=== PATIENT | female | born 1990 | race African-American/Black ===

== ENCOUNTER 2016-11-20 11:38 | Emergency (ER) | payer MEDICAID ==
[2016-11-20] MEDS ORDERED: LIDOCAINE 5% (700 MG) TRANSDERMAL ADH..PATCH TP ONE (12:24)
[2016-11-20] MEDS ORDERED: NAPROXEN 250 MG TABLET PO ONE (12:24)
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
--- NOTE | 2016-11-20 13:21 | RADIOLOGY REPORT (SQ) ---
EXAM DESCRIPTION: RIBS LEFT W/PA CHEST COMPLETED DATE/TIME: 11/20/2016 12:47 pm REASON FOR STUDY: left rib pain COMPARISON: 03/20/2016 TECHNIQUE: Frontal view of the chest and additional views of the left ribs acquired. NUMBER OF VIEWS: Three view. LIMITATIONS: None. FINDINGS: FRONTAL CXR: No pneumothorax. No pleural effusion. No atelectasis or infiltrates. RIBS: Old healed fracture involving the left lateral 9th rib. Nondisplaced fractures involving the a nterior left 7th and 8th ribs, age indeterminate. No lytic or blastic bony lesions. OTHER: No other significant finding. IMPRESSION: 1. Nondisplaced fractures involving the anterior lateral left 7th and 8th ribs, age ind eterminate. 2. Old healed fracture involving the posterior lateral left 9th rib. COMMENT: SITE OF TRAUMA/COMPLAINT MARKED/STAMP COMPLETED: YES. TECHNICAL DOCUMENTATION: JOB ID: [id number] [employer]- All Rights Reserved
[2016-11-20 13:29] LABS: APPEARANCE,URINE CLEAR; BILIRUBIN,URINE NEGATIVE (NEGATIVE); GLUCOSE, URINE NEGATIVE (NEGATIVE); KETONES,URINE NEGATIVE (NEGATIVE); LEUKOCYTE ESTERASE,URINE NEGATIVE (NEGATIVE); NITRITE,URINE NEGATIVE (NEGATIVE); PROTEIN,URINE NEGATIVE (NEGATIVE); URINE SPECIFIC GRAVITY 1.014
[2016-11-20] MEDS ORDERED: HYDROCODONE/ACETAMINOPHEN 5-325 MG TABLET PO ONE (13:41)
[2016-11-20 14:19] VITALS: BP 133/80
[2016-11-20 17:41] LABS: CHLAM PCR NOT DETECTED (NOT DETECT)
== END 2016-11-20 14:17 | disposition home or self-care (01) ==
LOC: ER 11:38
DX: S22.42XA Multiple fractures of ribs, left side, initial encounter for closed fracture (principal); W19.XXXA Unspecified fall, initial encounter; R30.0 Dysuria; R10.2 Pelvic and perineal pain
CPT/HCPCS: 99284; 81025; 81001; 87491; 87591; 71101; J3490 ×2

== ENCOUNTER 2017-09-01 03:56 | Emergency (ER) | payer SELFPAY ==
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
[2017-09-01] MEDS ORDERED: ACETAMINOPHEN 325 MG TABLET PO ONE (06:00)
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
[2017-09-01 07:55] VITALS: BP 124/80
--- NOTE | 2017-09-01 09:48 | EKG REPORT ---
SEVERITY:- NORMAL ECG - SINUS RHYTHM : Confirmed by: Carlos Alberto Javed MD 01-Sep-2017 09:47:46
== END 2017-09-01 07:55 | disposition home or self-care (01) ==
LOC: ER 03:56
DX: S00.83XA Contusion of other part of head, initial encounter (principal); S01.511A Laceration without foreign body of lip, initial encounter; S02.40FA Zygomatic fracture, left side, initial encounter for closed fracture; Y04.2XXA Assault by strike against or bumped into by another person, initial encounter; F17.200 Nicotine dependence, unspecified, uncomplicated
CPT/HCPCS: 70450; 70486; 71046; 93005; 93010; 99284

== ENCOUNTER 2017-09-15 02:25 | Emergency (ER) | payer SELFPAY ==
[2017-09-15] MEDS ORDERED: OXYCODONE-ACETAMINOPHEN 5-325 MG TABLET PO ONE (03:04)
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
[2017-09-15] MEDS ORDERED: LORAZEPAM 1 MG TABLET PO ONE (03:36)
[2017-09-15] MEDS ORDERED: LIDOCAINE 1% INJ-PF (10 MG/ML) 30 ML SDV INJ ONE (03:36)
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
[2017-09-15 06:35] VITALS: BP 118/81
== END 2017-09-15 06:35 | disposition home or self-care (01) ==
LOC: ER 02:25
DX: S02.40FA Zygomatic fracture, left side, initial encounter for closed fracture (principal); S01.511A Laceration without foreign body of lip, initial encounter; Y04.2XXA Assault by strike against or bumped into by another person, initial encounter
CPT/HCPCS: 99285; 70486; 40830; J3490

== ENCOUNTER 2017-09-18 11:11 | Emergency (ER) | payer SELFPAY ==
[2017-09-18 11:15] VITALS: BP 124/74
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
== END 2017-09-18 11:47 | disposition home or self-care (01) ==
LOC: ER 11:11
DX: Z48.89 Encounter for other specified surgical aftercare (principal); F17.200 Nicotine dependence, unspecified, uncomplicated
CPT/HCPCS: 99281

== ENCOUNTER 2018-08-12 11:52 | Outpatient (CLI) | payer MEDICAID ==
[2018-08-12 13:28] LABS: APPEARANCE,URINE CLEAR; BILIRUBIN,URINE NEGATIVE (NEGATIVE); COLOR,URINE STRAW; GLUCOSE, URINE NEGATIVE (NEGATIVE); KETONES,URINE TRACE mg/dL (NEGATIVE); LEUKOCYTE ESTERASE,URINE NEGATIVE (NEGATIVE); NITRITE,URINE NEGATIVE (NEGATIVE); PROTEIN,URINE NEGATIVE (NEGATIVE); URINE SPECIFIC GRAVITY 1.004; UROBILINOGEN,URINE NEGATIVE mg/dL (<2.0)
[2018-08-12 13:52] LABS: URINE AMPHETAMINES SCREEN NEGATIVE; URINE BARBITURATES SCREEN NEGATIVE; URINE BENZODIAZEPINES SCREEN NEGATIVE; URINE COCAINE SCREEN NEGATIVE; URINE METHADONE SCREEN NEGATIVE; URINE PHENCYCLIDINE SCREEN NEGATIVE
[2018-08-12 13:56] LABS: URINE MARIJUANA (THC) SCREEN UNCONFIRMED POSITIVE
== END 2018-08-12 14:06 | disposition home or self-care (01) ==
LOC: LC 11:52
PROVIDERS: ATTEND Obstetrics & Gynecology
PROC: 4A1HXCZ Monitoring of Products of Conception, Cardiac Rate, External Approach (ICD-10-PCS; principal; 2018-08-12)
DX: O47.02 False labor before 37 completed weeks of gestation, second trimester (principal); Z3A.21 21 weeks gestation of pregnancy
CPT/HCPCS: 80307; 81001

== ENCOUNTER → 2018-09-04 | Outpatient (CLI) | payer MEDICAID ==
--- NOTE | 2018-09-04 16:29 | RADIOLOGY REPORT (SQ) ---
EXAM DESCRIPTION: U/S OB 14+ TRNABD 1GES W/O DOP COMPLETED DATE/TIME: 09/04/2018 3:15 pm REASON FOR STUDY: ENCOUNTER FOR SUPERVISION OF OTHER NORMAL , SECOND TRIMESTER Z34.82 ENCO UNTER FOR SUPRVSN OF NORMAL , SECOND TRI 24 weeks 0 days by dates COMPARISON: None. TECHNIQUE: Static and Dynamic grayscale imaging performed of gravid uterus using transabdominal appr oach. Additional selected color Doppler and spectral images recorded. All stored on PACS. LIMITATIONS: None. FINDINGS: FETUSES SEEN:1 EGA: 23 weeks 2 days Calculated using BPD,FL,HC,AC documented on images. No discrepancy with clinica l dates. JR: 12/30/2018 EFW: 597 grams PERCENTILE: Not calculated ARCHIE: 15.8 cm PLACENTA: Fundal grade 1 PRESENTATION: Breech ANATOMY: HEART RATE: 144 beats per minute. FOUR CHAMBER HEART: Visualized. THREE VESSEL CORD: Yes. CORD INSERTION: Visualized. KIDNEYS AND BLADDER: Visualized. Appear normal. STOMACH: Visualized. Appears normal. SPINE: Normal as visualized. BRAIN AND LATERAL VENTRICLES: Visualized. Appear normal. OTHER: No other significant finding. MATERNAL ADNEXA: Not seen. CERVICAL LENGTH: Not measured. OTHER: No other significant finding. IMPRESSION: LIVING INTRAUTERINE . ESTIMATED GESTATIONAL AGE 23 weeks 2 days NO VISUALIZED ANOMALIES. Trimester of : Second trimester - 13 weeks 1 day to 27 weeks 6 days. TECHNICAL DOCUMENTATION: JOB ID: [id number] [employer]- All Rights Reserved Reading location - IP/workstation name: [email or web address]
== END ==
LOC: RAD 14:02
PROVIDERS: ATTEND Midwife
DX: Z34.82 Encounter for supervision of other normal pregnancy, second trimester (principal)
CPT/HCPCS: 76805

== ENCOUNTER 2018-12-22 19:16 | Inpatient (IN) | payer MEDICAID ==
[2018-12-22 20:00] LABS: APPEARANCE,URINE CLEAR; BILIRUBIN,URINE NEGATIVE (NEGATIVE); COLOR,URINE STRAW; GLUCOSE, URINE NEGATIVE (NEGATIVE); KETONES,URINE NEGATIVE (NEGATIVE); LEUKOCYTE ESTERASE,URINE SMALL (NEGATIVE); NITRITE,URINE NEGATIVE (NEGATIVE); PROTEIN,URINE NEGATIVE (NEGATIVE); URINE SPECIFIC GRAVITY 1.002; UROBILINOGEN,URINE NEGATIVE mg/dL (<2.0)
[2018-12-22 20:28] LABS: URINE AMPHETAMINES SCREEN NEGATIVE; URINE BARBITURATES SCREEN NEGATIVE; URINE BENZODIAZEPINES SCREEN NEGATIVE; URINE COCAINE SCREEN NEGATIVE; URINE METHADONE SCREEN NEGATIVE; URINE PHENCYCLIDINE SCREEN NEGATIVE
[2018-12-22 20:34] LABS: URINE MARIJUANA (THC) SCREEN UNCONFIRMED POSITIVE
[2018-12-22] MEDS ORDERED: OXYTOCIN/NORMAL SALINE 0 UNIT/0 ML RTUINJ ONE (20:39)
[2018-12-22] MEDS ORDERED: LIDOCAINE 1% INJ-PF (10 MG/ML) 30 ML SDV ONE ×2 (20:39→20:42)
[2018-12-22] MEDS ORDERED: MISOPROSTOL 0.2 MG TABLET ONE ×2 (20:39→20:42)
[2018-12-22] MEDS ORDERED: OXYTOCIN 10 UNIT/ML VIAL ONE (20:41)
[2018-12-22] MEDS ORDERED: OXYTOCIN/NORMAL SALINE 20 UNIT/1,000 ML RTUINJ ONE (20:42)
[2018-12-22] MEDS ORDERED: RINGERS SOLUTION,LACTATED 1,000 ML IV PRN (20:59)
[2018-12-22] MEDS ORDERED: PENICILLIN G-K 5 MILLION UNIT VIAL ONE (20:59)
[2018-12-22] MEDS ORDERED: PENICILLIN G POTASSIUM 5,000,000 UNIT in DEXTROSE 5%-WATER 100 ML IV ONE (20:59)
[2018-12-22 21:36] LABS: ABSOLUTE EOSINOPHILS # (AUTO) 0.1 10^3/uL (0.0-0.6); ABSOLUTE LYMPHOCYTES (AUTO) 2.2 10^3/uL (0.5-4.7); ABSOLUTE MONOCYTES (AUTO) 0.7 10^3/uL (0.1-1.4); BASOPHILS % (AUTO) 0.2 % (0-2); EOSINOPHILS % (AUTO) 1.2 % (0-6); HEMATOCRIT 30.5 % (36.0-47.0); HEMOGLOBIN 9.9 g/dL (12.0-15.5); LYMPHOCYTES % (AUTO) 24.5 % (13-45); MEAN CORPUSCULAR HEMOGLOBIN 23.3 pg (27.0-33.4); MEAN CORPUSCULAR HGB CONC 32.5 g/dL (32.0-36.0); MEAN CORPUSCULAR VOLUME 72 fl (80-97); MONOCYTES % (AUTO) 7.4 % (3-13); PLATELET COUNT 260 10^3/uL (150-450); RED BLOOD COUNT 4.26 10^6/uL (3.72-5.28); RED CELL DISTRIBUTION WIDTH 14.4 % (11.5-14.0); SEGMENTED NEUTROPHILS % (AUTO) 66.7 % (42-78); TOTAL CELLS COUNTED % (AUTO) 100 %
[2018-12-22] MEDS ORDERED: ONDANSETRON HCL INJ/PF 4 MG/2 ML SDV ONE ×2 (22:58→23:06)
[2018-12-22] MEDS ORDERED: OXYTOCIN/NORMAL SALINE 20 UNIT/1,000 ML RTUINJ IV PRN (22:58)
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
[2018-12-22] MEDS ORDERED: ONDANSETRON HCL INJ/PF 4 MG/2 ML SDV IV ONE (23:30)
[2018-12-22] MEDS ORDERED: EPHEDRINE SULFATE INJ 50 MG/1 ML AMPULE ONE (23:32)
[2018-12-22] MEDS ORDERED: BUPIVACAINE HCL 0.25 % INJ/PF (2.5 MG/1 ML) 30 ML VIAL ONE (23:32)
[2018-12-22] MEDS ORDERED: FENTANYL/BUPIVACAINE/NS/PF 0 MCG/0 ML RTUINJ EPI ONE (23:32)
[2018-12-22] MEDS ORDERED: FENTANYL/BUPIVACAINE/NS/PF 300 MCG/150 ML RTUINJ EPI ONE (23:36)
[2018-12-23] MEDS ORDERED: PENICILLIN G-K 5 MILLION UNIT VIAL ONE ×2 (00:51→05:19)
[2018-12-23] MEDS: PENICILLIN G POTASSIUM 2,500,000 UNIT in DEXTROSE 5%-WATER 50 ML IV SCH ×2 (01:13→05:39)
[2018-12-23 02:49] LABS: CHLAM PCR NOT DETECTED (NOT DETECT)
[2018-12-23] MEDS ORDERED: CITRIC ACID/SODIUM CITRATE ORAL SOLN 15 ML UDCUP ONE ×2 (08:46→08:50)
[2018-12-23] MEDS ORDERED: CEFAZOLIN 1 GM/D5W RTU 0 GM/0 ML RTUPB IV ONE (08:46)
[2018-12-23] MEDS ORDERED: CEFAZOLIN 1 GM/D5W RTU 2 GM/100 ML RTUPB IV ONE (08:50)
[2018-12-23] MEDS ORDERED: CHLOROPROCAINE HCL INJ/PF 3% (30 MG/1 ML) 20 ML VIAL ONE (08:51)
[2018-12-23] MEDS ORDERED: OXYTOCIN 10 UNIT/ML VIAL ONE (08:51)
[2018-12-23] MEDS ORDERED: PHENYLEPHRINE HCL INJ/PF 10 MG/1 ML SDV ONE (08:51)
[2018-12-23] MEDS ORDERED: LIDOCAINE 2% INJ-PF (20 MG/ML) 10 ML AMPUL ONE (08:51)
[2018-12-23] MEDS ORDERED: MIDAZOLAM 2 MG/2 ML INJ ONE (08:51)
[2018-12-23] MEDS ORDERED: OXYTOCIN/NORMAL SALINE 20 UNIT/1,000 ML RTUINJ IV PRN (09:04)
[2018-12-23] MEDS ORDERED: PROMETHAZINE HCL INJ 25 MG/1 ML VIAL IV PRN (09:04)
[2018-12-23] MEDS ORDERED: OXYCODONE-ACETAMINOPHEN 5-325 MG TABLET PO PRN (09:04)
[2018-12-23] MEDS ORDERED: SIMETHICONE 80 MG TAB.CHEW PO PRN (09:04)
[2018-12-23] MEDS ORDERED: MEASLES,MUMPS&RUBELLA VACC/PF 0.5 ML VIAL SUBCUT PRN ×2 (09:04→10:00)
[2018-12-23] MEDS ORDERED: HYDROMORPHONE HCL INJ/PF 2 MG/ML AMPULE IV PRN (09:04)
[2018-12-23] MEDS ORDERED: ACETAMINOPHEN 1,000 MG/100 ML RTUPB IV PRN (09:04)
[2018-12-23] MEDS ORDERED: DIPH/PERTUSS(ACELL)/TETANUS VAC/PF 0.5 ML SYR (>=10YO) IM PRN ×2 (09:04→10:00)
[2018-12-23] MEDS ORDERED: ACETAMINOPHEN 325 MG TABLET PO PRN (09:04)
[2018-12-23] MEDS ORDERED: ONDANSETRON HCL INJ/PF 4 MG/2 ML SDV ONE (09:37)
[2018-12-23] MEDS ORDERED: PENICILLIN G-K 5 MILLION UNIT VIAL IV SCH ×2 (10:00)
[2018-12-23] MEDS ORDERED: OXYTOCIN/NORMAL SALINE 20 UNIT/1,000 ML RTUINJ ONE (10:13)
--- NOTE | 2018-12-23 10:16 | Operative Report ---
Operative Report DATE OF SURGERY: 12/23/18 PREOPERATIVE DIAGNOSIS: Nonreassuring heart tracing POSTOPERATIVE DIAGNOSIS: Same OPERATION: Primary via low transverse uterine incision SURGEON: JAMEY MONTOYA ANESTHESIA: Epidural TISSUE REMOVED OR ALTERED: Placenta COMPLICATIONS: None ESTIMATED BLOOD LOSS: 500 cc INTRAOPERATIVE FINDINGS: Meconium noted, viable , normal uterus tubes and ovaries PROCEDURE: Patient was taken to the OR and placed in supine position after her spinal anesthesia. She is prepared and draped in sterile fashion. Lazo was placed for drainage of the bladder. Low transverse incision was made and carried down the level of the fascia. The fascial incision was made with knife and extended bilaterally with curved Gibson scissors. The fascia was off the rectus muscles using sharp and blunt dissection. The rectus muscles are in the midline. The peritoneum was entered without incident. Bladder blade was placed in uterine segment was identified. A low transverse incision was made creating a bladder flap. Bladder blade was placed low transverse uterine incision was made with the knife and extended with fingertips. The baby was delivered with some fundal pressure. Mouth and nose were suctioned free. The cord is doubly clamped and cut. Baby is passed off to the pipe finisher in attendance. The placenta was manually extracted with trailing membranes. The uterus was externalized wrapped in a moist lap sponge. Uterine contents wiped free. Uterus was closed with a running locking layer of 0 chromic suture using the second layer to imbricate the first completing a double layer closure of the uterus. The serosa was closed with a running 2-0 chromic stitch. The pelvis was irrigated and suctioned free of fluid the uterus was replaced in the abdomen. The abdominal wall peritoneum was closed with running 2-0 chromic stitch. Fascia was closed with a running 0 Vicryl in 2 segments. Tony's layer was brought together with 0 plain gut stitch and the skin was closed with running subcuticular 4-0 undyed Vicryl stitch. The wound was dressed mother and baby did well.
[2018-12-23] MEDS ORDERED: KETOROLAC TROMETHAMINE INJ/PF 30 MG/1 ML SDV ONE (10:44)
[2018-12-23] MEDS ORDERED: ACETAMINOPHEN 1,000 MG/100 ML RTUPB IV ONE (10:44)
[2018-12-23] MEDS ORDERED: HYDROMORPHONE HCL INJ/PF 2 MG/ML AMPULE ONE (11:35)
[2018-12-23] MEDS: DOCUSATE SODIUM 100 MG CAPSULE PO SCH ×2 (15:20→18:19)
[2018-12-23] MEDS: PRENATAL VITAMIN W DHA CAPSULE PO SCH (15:20)
[2018-12-23] MEDS: SERTRALINE HCL 50 MG TABLET PO SCH (15:20)
[2018-12-23] MEDS: KETOROLAC TROMETHAMINE INJ/PF 30 MG/1 ML SDV IV SCH ×2 (15:21→18:19)
--- NOTE | 2018-12-23 15:46 | Delivery Summary ---
Del Sum A-C Datetime Report Generated by CPN: 12/23/2018 15:46 DELIVERY PERSONNEL DELIVERY PERSONNEL: [id number] Delivery Doctor:: Bri Norton MD Anesthesiologist:: DR CASTRO SMELTER CHARGER:: Jamal Tomas CRNA Labor and Delivery Nurse:: Janneth Clarke RN County Sheriff:: Janneth Clarke RN Neonatal Nurse Practitioner:: DIONI Corona Nursery Nurse:: Mary Beth Belcher RN Archivist Military History/DIE OPERATOR: Yissel Vences CST Archivist Military History/DIE OPERATOR: Maged ROCKWELL RN Additional Personnel: : Desiree Amezquita RNC MATERNAL INFORMATION Delivery Anesthesia: Epidural Medications After Delivery: Pitocin Bolus-Please Comment; Pitocin Drip 20 Units/1000ml NSS Delivery QBL: 1059 Maternal Complications: None LABOR SUMMARY EDC: 12/25/2018 00:00 No. Babies in Womb: 1 Attempted: No Labor Anesthesia: Epidural LABOR INFORMATION Reason for Induction: Not Applicable Onset of Labor: 12/22/2018 18:45 Oxytocin: Augmentation Group B Beta Strep: positive Antibiotics # of Doses: 3 Antibiotics Time of Last Dose: 0538 Name of Antibiotic Given: PENICILLIN G Steroids Given: None Reason Steroids Not Administered: Not Applicable MEMBRANES Membranes Rupture Method: Spontaneous Rupture of Membranes: 12/22/2018 18:30 Length of Rupture (hr): 14.67 Amniotic Fluid Color: Heavy Meconium STAGES OF LABOR Stage 3 hr: 0 Stage 3 min: 1 Total Time in Labor hr: 14 Total Time in Labor min: 26 CSECTION DELIVERY Primary Indication: Nonreassuring Status Secondary Indication: N/A CSection Urgency: Emergency CSection Incidence: Primary Labor: Labor Elective: Nonelective CSection Incision: Lower Uterine Transverse BABY A INFORMATION Infant Delivery Date/Time: 12/23/2018 09:10 Method of Delivery: Born in Route : No : N/A Forceps: N/A Vacuum Extraction: N/A Shoulder Dystocia : No PRESENTATION/POSITION BABY A Presentation: Cephalic Cephalic Presentation: Vertex Breech Presentation: N/A PLACENTA INFORMATION BABY A Placenta Delivery Time : 12/23/2018 09:11 Placenta Method of Delivery: Manual Removal Placenta Status: Delivered SCORES BABY A Heart Rate 1 min: >100 bpm Resp Effort 1 min: Good Cry Reflex Irritability 1 min: Cough or Sneeze or Pulls Away Muscle Tone 1 min: Active Motion Color 1 min: Blue/Pale Resuscitation Effort 1 min: Tactile Stimulation SCORE 1 MIN: 8 Heart Rate 5 min: >100 bpm Resp Effort 5 min: Good Cry Reflex Irritability 5 min: Cough or Sneeze or Pulls Away Muscle Tone 5 min: Active Motion Color 5 min: Body [place], Extremities Blue Resuscitation Effort 5 min: Tactile Stimulation SCORE 5 MIN: 9 INFORMATION BABY A Gestational Age at Delivery: 39.5 Gestational Status: Full Term- 39- 40.6 Weeks Infant Outcome : Liveborn Condition : Stable Sex: Female IDENTIFICATION BABY A Infant Verification Date/Time: 12/23/2018 09:25 ID Band Number: [id number] Mother's Name Verified: Yes RN Verifying Infant: Vivien Belcher RN/B [place], RN WEIGHT/LENGTH BABY A Infant Birthweight (gm): 3225 Weight (lb): 7 Weight (oz): 2 Length (in): 19.25 Length (cm): 48.90 CORD INFORMATION BABY A No. Cord Vessels: 3 Nuchal Cord : N/A Cord Blood Taken: Yes-For Storage (Mom's Blood type +) Suction: None; Mouth ASSESSMENT BABY A Infant Complications: Multiple Late Decels; Meconium; Other Infant Complications- Other: PROLONGED DECELS Physical Findings at Delivery: Within Normal Limits Infant Respirations: Appears Normal Skin to Skin: Yes Skin to Skin Time (min): 40 Floor And Wall Applier Liquid/ALS Called : No Care By: Vivien BELCHER RN/ DIONI BOGGS Transferred To: Nursery BABY B INFORMATION : N/A
[2018-12-23] MEDS: OXYCODONE-ACETAMINOPHEN 5-325 MG TABLET PO PRN ×2 (16:53→23:43)
[2018-12-24] MEDS: KETOROLAC TROMETHAMINE INJ/PF 30 MG/1 ML SDV IV SCH (01:52)
[2018-12-24 06:52] LABS: HEMATOCRIT 27.3 % (36.0-47.0); HEMOGLOBIN 8.8 g/dL (12.0-15.5); MEAN CORPUSCULAR HGB CONC 32.2 g/dL (32.0-36.0); MEAN CORPUSCULAR VOLUME 72 fl (80-97); PLATELET COUNT 228 10^3/uL (150-450); RED BLOOD COUNT 3.81 10^6/uL (3.72-5.28); RED CELL DISTRIBUTION WIDTH 13.9 % (11.5-14.0); WHITE BLOOD COUNT 13.9 10^3/uL (4.0-10.5)
[2018-12-24] MEDS: OXYCODONE-ACETAMINOPHEN 5-325 MG TABLET PO PRN (08:17)
--- NOTE | 2018-12-24 09:42 | PDOC PROGRESS REPORT ---
Subjective-OB Progress Note for:: 12/24/18 Subjective: Doing well, holding baby, ,voiding, scant bleeding not pssing gas but feels gas Physical Exam (OB) Vital Signs: Temp Pulse Resp BP Pulse Ox 97.8 F 75 16 109/63 96 12/24/18 08:21 12/24/18 08:21 12/24/18 08:21 12/24/18 08:21 12/24/18 08:21 Intake & Output 12/23/18 12/24/18 12/25/18 06:59 06:59 06:59 Intake Total 1485 Output Total 2150 Balance -665 Weight 96.4 kg - PIH/Pre-Eclampsia Headache: Absent Epigastric Pain: No Visual Changes: No - Dressing Removed: No Incision: Dressing Closure Type: Surgical Glue - Lochia Lochia Amount: Scant < 10 ml Lochia Color: Rubra/Red - Abdomen Description: Tender, Soft Hernia Present: No Fundal Description: Firm, Midline Fundal Height: u/u - u/2 Objective-Diagnostic Laboratory: 12/24/18 05:48 12/24/18 05:48 WBC 13.9 H RBC 3.81 Hgb 8.8 L Hct 27.3 L MCV 72 L MCH 23.0 L MCHC 32.2 RDW 13.9 Plt Count 228 Assessment and Plan(PN) - Assessment and Plan (1) Anemia Qualifiers: Anemia type: iron deficiency Is this a current diagnosis for this admission?: Yes (2) S/P primary low transverse Is this a current diagnosis for this admission?: Yes (3) Non-reassuring electronic monitoring tracing Is this a current diagnosis for this admission?: Yes (4) Carrier or suspected carrier of group B Streptococcus Is this a current diagnosis for this admission?: Yes (5) Iron deficiency anemia during Is this a current diagnosis for this admission?: Yes (6) Premature rupture of membranes Qualifiers: PROM onset of labor timing: unspecified duration between rupture of membranes and onset of labor PROM gestational age: unspecified gestational age Qualified Code(s): O42.90 - Premature rupture of membranes, unspecified as to length of time between rupture and onset of labor, unspecified weeks of gest ation Is this a current diagnosis for this admission?: Yes (7) Marijuana smoker Is this a current diagnosis for this admission?: Yes - Time Spent with Patient Time with patient: Less than 15 minutes Medications reviewed and adjusted accordingly: Yes - Disposition Anticipated Discharge: Home Within: within 24 hours
[2018-12-24] MEDS ORDERED: KETOROLAC TROMETHAMINE INJ/PF 30 MG/1 ML SDV IV SCH (10:00)
[2018-12-24] MEDS: SERTRALINE HCL 50 MG TABLET PO SCH (10:21)
[2018-12-24] MEDS: DOCUSATE SODIUM 100 MG CAPSULE PO SCH ×2 (10:21→17:28)
[2018-12-24] MEDS: PRENATAL VITAMIN W DHA CAPSULE PO SCH (10:21)
[2018-12-24] MEDS: IBUPROFEN 800 MG TABLET PO SCH ×3 (11:11→23:14)
[2018-12-25] MEDS: OXYCODONE-ACETAMINOPHEN 5-325 MG TABLET PO PRN (00:21)
[2018-12-25] MEDS: IBUPROFEN 800 MG TABLET PO SCH ×2 (05:03→11:53)
[2018-12-25 08:22] VITALS: BP 111/67
[2018-12-25] MEDS: SERTRALINE HCL 50 MG TABLET PO SCH (09:28)
[2018-12-25] MEDS: PRENATAL VITAMIN W DHA CAPSULE PO SCH (09:28)
[2018-12-25] MEDS: DOCUSATE SODIUM 100 MG CAPSULE PO SCH (09:28)
--- NOTE | 2018-12-25 09:34 | PDOC DISCHARGE SUMMARY ---
Final Diagnosis Discharge Date: 12/25/18 - POD #2, doing well, no complaints, desires to go home today. B+, rubella Immune, - Final Diagnosis (1) Carrier or suspected carrier of group B Streptococcus Is this a current diagnosis for this admission?: Yes (2) Anemia Is this a current diagnosis for this admission?: Yes (3) Iron deficiency anemia during Is this a current diagnosis for this admission?: Yes (4) Marijuana smoker Is this a current diagnosis for this admission?: Yes (5) Non-reassuring electronic monitoring tracing Is this a current diagnosis for this admission?: Yes (6) Premature rupture of membranes Is this a current diagnosis for this admission?: Yes (7) S/P primary low transverse Is this a current diagnosis for this admission?: Yes Discharge Data - Discharge Medication Prescriptions: Ferrous Sulfate [Feosol 325 mg Tablet] 325 mg PO DAILY #30 tablet Ibuprofen [Motrin 800 mg Tablet] 800 mg PO Q6 #60 tablet Oxycodone HCl/Acetaminophen [Percocet 5-325 mg Tablet] 1 tab PO Q4HP PRN #30 tablet PRN Reason: Pain Scale Of 3 Home Medications: Pnv No.95/Ferrous Fum/Folic AC [ Vitamin Tablet] 1 each PO DAILY 08/12/18 Sertraline HCl [Zoloft 50 mg Tablet] 1 tab PO DAILY 12/22/18 Ferrous Sulfate [Feosol 325 mg Tablet] 325 mg PO DAILY #30 tablet 12/25/18 Ibuprofen [Motrin 800 mg Tablet] 800 mg PO Q6 #60 tablet 12/25/18 Oxycodone HCl/Acetaminophen [Percocet 5-325 mg Tablet] 1 tab PO Q4HP PRN #30 tablet 12/25/18 Reason(s) for Admission: Onset of Labor, Ceasarean Section-Primary Procedures: NST, Ultrasound Intrapartum Procedure(s): : Low Cervical, Transverse - Diagnosis Test Laboratory: Temp Pulse Resp BP Pulse Ox 97.7 F 74 22 H 111/67 100 12/25/18 08:00 12/25/18 08:00 12/25/18 08:00 12/25/18 08:00 12/25/18 08:00 12/22/18 12/22/18 12/24/18 19:25 21:10 05:48 RBC 4.26 3.81 Hgb 9.9 L 8.8 L Hct 30.5 L 27.3 L Urine Opiates Screen NEGATIVE - Discharge information/Instructions Discharge Activity: Activity As Tolerated, No Driving, No Lifting Over 10 Pounds, Pelvic Rest Discharge Diet: As Tolerated, Regular Disposition: HOME, SELF-CARE Follow up with: [facility] in: 1, Weeks
[2018-12-25] MEDS ORDERED: FERROUS SULFATE 325 MG TABLET PO SCH (10:00)
== END 2018-12-25 13:32 | disposition home or self-care (01) | DRG 787 ==
LOC: LC 19:16 → LR 20:44 → 2S 12-23 12:20
PROVIDERS: ADMIT Student in an Organized Health Care Education/Training Program; ATTEND Obstetrics & Gynecology
PROC: 10D00Z1 Extraction of Products of Conception, Low, Open Approach (ICD-10-PCS; principal; 2018-12-23)
DX: O76 Abnormality in fetal heart rate and rhythm complicating labor and delivery (principal); O99.323 Drug use complicating pregnancy, third trimester; O99.824 Streptococcus B carrier state complicating childbirth; O99.344 Other mental disorders complicating childbirth; F32.9 Major depressive disorder, single episode, unspecified; O42.92 Full-term premature rupture of membranes, unspecified as to length of time between rupture and onset of labor; O99.02 Anemia complicating childbirth; Z37.9 Outcome of delivery, unspecified; O77.0 Labor and delivery complicated by meconium in amniotic fluid; D50.9 Iron deficiency anemia, unspecified; F12.90 Cannabis use, unspecified, uncomplicated; Z37.0 Single live birth; Z87.891 Personal history of nicotine dependence; Z3A.39 39 weeks gestation of pregnancy
CPT/HCPCS: 1961; 36415; 80307; 80349; 81005; 84112; 85025; 85027; 86592; 86850; 86900; 86901; 87491; 87591; 94799; C1726; G0480; J0131; J0690; J1170; J1885; J2250; J2370; J2400; J2405; J2540; J2590; J3010; J3490; J7060; J7120

== ENCOUNTER 2020-03-01 15:11 | Emergency (ER) | payer MEDICAID | END 2020-03-01 16:00 | disposition left against medical advice (07) | LOC: ER 15:11 | DX: Z53.21 Procedure and treatment not carried out due to patient leaving prior to being seen by health care provider (principal) ==

== ENCOUNTER 2020-03-01 21:56 | Emergency (ER) | payer MEDICAID ==
--- NOTE | 2020-03-01 22:25 | ER Document Report ---
ED Medical Screen (RME) - General Chief Complaint: Sore Throat Stated Complaint: THROAT Time Seen by Provider: 03/01/20 22:21 Mode of Arrival: Ambulatory Information source: Patient Notes: 30-year-old -[place] female with 1 week of sore throat and painful swallowing. Over the past 2 days she has developed swelling in the left side of her neck. No fevers or shaking chills. No headache. No nausea or vomiting. No abdominal pain. General nontoxic Cardiac regular rate and rhythm Pulmonary no respiratory distress HEENT: Slightly injected posterior pharynx without swelling, without exudates. No pooling of secretions. No submandibular or sublingual swelling. No dysphonia dyspnea or dysphagia I have greeted and performed a rapid initial assessment of this patient. A comprehensive ED assessment and evaluation of the patient, analysis of test results and completion of the medical decision making process will be conducted by additional ED providers. TRAVEL OUTSIDE OF THE [place] IN LAST 30 DAYS: No - Related Data Allergies/Adverse Reactions: No Known Allergies Allergy (Verified 03/01/20 22:22) Past Medical History - Social History Frequency of alcohol use: None Drug Abuse: None Renal/ Medical History: Denies: Hx Peritoneal Dialysis Past Surgical History: Reports: Hx Orthopedic Surgery - Right tibia fixation 7 weeks ago. - Immunizations Immunizations up to date: Yes Hx Diphtheria, Pertussis, Tetanus Vaccination: Yes Physical Exam - Vital signs Vitals: Temp Pulse Resp BP Pulse Ox 98.8 F 86 18 126/71 H 98 03/01/20 22:19 03/01/20 22:19 03/01/20 22:19 03/01/20 22:19 03/01/20 22:19 Course - Vital Signs Vital signs: Temp Pulse Resp BP Pulse Ox 98.8 F 86 18 126/71 H 98 03/01/20 22:19 03/01/20 22:19 03/01/20 22:19 03/01/20 22:19 03/01/20 22:19
[2020-03-01 23:18] LABS: ABSOLUTE EOSINOPHILS # (AUTO) 0.3 10^3/uL (0.0-0.6); ABSOLUTE LYMPHOCYTES (AUTO) 2.9 10^3/uL (0.5-4.7); ABSOLUTE MONOCYTES (AUTO) 0.4 10^3/uL (0.1-1.4); ABSOLUTE NEUT (AUTO) 5.9 10^3/uL (1.7-8.2); BASOPHILS % (AUTO) 0.2 % (0-2); EOSINOPHILS % (AUTO) 3.6 % (0-6); HEMATOCRIT 33.3 % (36.0-47.0); HEMOGLOBIN 11.2 g/dL (12.0-15.5); LYMPHOCYTES % (AUTO) 30.1 % (13-45); MEAN CORPUSCULAR HEMOGLOBIN 24.7 pg (27.0-33.4); MEAN CORPUSCULAR HGB CONC 33.7 g/dL (32.0-36.0); MEAN CORPUSCULAR VOLUME 73 fl (80-97); MONOCYTES % (AUTO) 4.1 % (3-13); PLATELET COUNT 293 10^3/uL (150-450); RED BLOOD COUNT 4.54 10^6/uL (3.72-5.28); RED CELL DISTRIBUTION WIDTH 13.6 % (11.5-14.0); TOTAL CELLS COUNTED % (AUTO) 100 %; WHITE BLOOD COUNT 9.5 10^3/uL (4.0-10.5)
[2020-03-01 23:27] LABS: ALBUMIN 3.6 g/dL (3.5-5.0); ALKALINE PHOSPHATASE 45 U/L (38-126); ANION GAP 8 (5-19); ASPARTATE AMINO TRANSFERASE 14 U/L (14-36); BILIRUBIN,DIRECT 0.3 mg/dL (0.0-0.4); BILIRUBIN,TOTAL 0.3 mg/dL (0.2-1.3); BLOOD UREA NITROGEN 6 mg/dL (7-20); CALCIUM 9.4 mg/dL (8.4-10.2); CARBON DIOXIDE 21 mmol/L (22-30); CHLORIDE 105 mmol/L (98-107); GLUCOSE 99 mg/dL (75-110); POTASSIUM 3.7 mmol/L (3.6-5.0); TOTAL PROTEIN 6.7 g/dL (6.3-8.2)
[2020-03-02 04:33] VITALS: BP 109/65
== END 2020-03-02 07:26 | disposition left against medical advice (07) ==
LOC: ER 21:56
DX: J02.9 Acute pharyngitis, unspecified (principal); R22.1 Localized swelling, mass and lump, neck; Z53.20 Procedure and treatment not carried out because of patient's decision for unspecified reasons
CPT/HCPCS: 36415; 80053; 84703; 85025; 86308; 87070; 87077; 87880; 99281

== ENCOUNTER 2020-03-02 14:34 | Emergency (ER) | payer MEDICAID ==
--- NOTE | 2020-03-02 16:07 | ER Document Report ---
ED General - General Chief Complaint: Sore Throat Stated Complaint: SORE THROAT,SWELLING Time Seen by Provider: 03/02/20 15:28 Mode of Arrival: Ambulatory Information source: Patient Notes: 30-year-old -B[place]ut[place] female who is about 12 weeks coming in with very sore throat and swelling under the left jaw for the past 2 or 3 days. No fevers or chills. No nausea or vomiting just painful swallowing. Not having any trouble managing her secretions. She has no cough, no body aches, no shortness of breath, no vomiting or diarrhea. TRAVEL OUTSIDE OF THE [place] IN LAST 30 DAYS: No - Related Data Allergies/Adverse Reactions: No Known Allergies Allergy (Verified 03/02/20 15:35) Past Medical History - Social History Smoking Status: Current Every Day Smoker Family History: Arthritis, DM, Hypertension, Thyroid Disfunction Patient has homicidal ideation: No Renal/ Medical History: Denies: Hx Peritoneal Dialysis Past Surgical History: Reports: Hx Orthopedic Surgery - Right tibia fixation 7 weeks ago. - Immunizations Immunizations up to date: Yes Hx Diphtheria, Pertussis, Tetanus Vaccination: Yes Review of Systems - Review of Systems Notes: Constitutional: No fevers. No chills. EENT: No eye redness. No eye pain. No ear pain. +sore throat. Positive swelling in neck Cardiovascular: No chest pain. No palpitations. Respiratory: No cough. No shortness of breath. No respiratory distress. Gastrointestinal: No abdominal pain. No nausea, vomiting, or diarrhea. Genitourinary: Atraumatic. No lesions. No pain. No discharge. Musculoskeletal: Atraumatic. No swelling. No deformities. Skin: No rash or lesions. Lymphatic: No swollen lymph nodes. Neurologic: No headache. No syncope. Psychiatric: No suicidal or homicidal ideation. Physical Exam - Vital signs Vitals: Temp Pulse Resp BP Pulse Ox 98.6 F 87 16 130/77 H 100 03/02/20 14:53 03/02/20 14:53 03/02/20 14:53 03/02/20 14:53 03/02/20 14:53 - Notes Notes: General: Well-developed, well-nourished. In no acute distress. Non-toxic appearing. Cardiac: Well-perfused. Regular rate and rhythm. No murmurs, rubs, or gallops. Pulmonary: No respiratory distress. No cyanosis. Bilateral lung Edwards are clear to auscultation. Abdominal: Non-distended. Non-rigid. Bowels sounds are present in all four quadrants. No guarding or rebound. HEENT: Head is atraumatic. Conjunctivae not reddened. No tearing. PERRL. EOMI. Orbits atraumatic. No periorbital swelling or erythema. Posterior pharynx minimally injected. Swelling noted up under the left jaw which is well-defined consistent with submandibular lymph node Neck: Supple. No adenopathy. No meningismus. Dermatologic: Warm with good turgor. No rash. Atraumatic. Chest: Atraumatic. No chest wall tenderness to palpation. Musculoskeletal: Moves all extremities well. No range of motion deficits. no muscular or joint tenderness. No paraspinal muscle tenderness. no midline spinal tenderness or step-off. Genitourinary: Examination deferred Neurologic: No gross neurologic deficits. Psychiatric: Normal mood. Course - Re-evaluation Re-evalutation: 03/02/20 16:04 CBC is not concerning. Strep test is negative. Patient probably has viral pharyngitis with reactive lymphadenopathy - Vital Signs Vital signs: Temp Pulse Resp BP Pulse Ox 98.6 F 87 16 130/77 H 100 03/02/20 14:53 03/02/20 14:53 03/02/20 14:53 03/02/20 14:53 03/02/20 14:53 Discharge - Discharge Clinical Impression: Elevated blood pressure reading Pharyngitis Qualifiers: Pharyngitis/tonsillitis etiology: unspecified etiology Qualified Code(s): J02.9 - Acute pharyngitis, unspecified Condition: Good Disposition: HOME, SELF-CARE Instructions: Penicillin V K ([facility]), Sore Throat ([facility]) Additional Instructions: You can gargle salt water or get some sore throat sprays. Make sure to check with the pharmacist that they are safe for use in . Tylenol is generally considered to be safe in . Take antibiotics for full course. If significantly worse you can return to the ER Prescriptions: Penicillin V Potassium [Penicillin Vk 500 mg Tablet] 500 mg PO QID 7 Days #28 tablet Forms: Elevated Blood Pressure
[2020-03-02 16:13] VITALS: BP 131/76
== END 2020-03-02 16:12 | disposition home or self-care (01) ==
LOC: ER 14:34
DX: O26.91 Pregnancy related conditions, unspecified, first trimester (principal); J02.9 Acute pharyngitis, unspecified; R03.0 Elevated blood-pressure reading, without diagnosis of hypertension; O99.331 Smoking (tobacco) complicating pregnancy, first trimester; F17.220 Nicotine dependence, chewing tobacco, uncomplicated; Z3A.12 12 weeks gestation of pregnancy
CPT/HCPCS: 87070; 87880; 99283